=== PATIENT | female | born 2000 | race American Indian/Alaskan Native ===

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

== ENCOUNTER 2019-07-04 17:41 | Emergency (ER) | payer SELFPAY ==
--- NOTE | 2019-07-04 20:51 | Event Note ---
ED Screening Note Date of service: 07/04/19 Time: 20:47 ED Screening Note: This is a 19 y.o. F. that presents to the ER with pelvic pain, n/v x 1 week. Patient states she is 2 months . No OBGYN. LMP 04/26/2019, A0 Admits pelvic pain, N/V, and vaginal discharge. Denies urinary frequency, urgency, dysuria. This initial assessment/diagnostic orders/clinical plan/treatment(s) is/are subject to change based on patients health status, clinical progression and re- assessment by fellow clinical providers in the ED. Further treatment and workup at subsequent clinical providers discretion. Patient/guardian urged not to elope from the ED as their condition may be serious if not clinically assessed and managed. Initial orders include: Labs and OB US
--- NOTE | 2019-07-04 21:09 | Emergency Department Report ---
ED Abdominal Pain HPI - General Chief Complaint: Abdominal Pain Stated Complaint: 8 WKS /MISCARRIAGE Time Seen by Provider: 07/04/19 20:47 Source: patient Mode of arrival: Ambulatory Limitations: No Limitations - History of Present Illness Initial Comments: This is a 19-year-old female here complaining that she is 8 weeks and complaining of sharp lower abdominal pain. She says she had some discharge today. Pain is 10 out of 10 located to the lower abdomen at pelvic area. She denies any vaginal bleeding or back pain. Denies any nausea or vomiting. Denies any shortness of breath or chest pain. Denies any urinary symptoms. She says she has unprotected sex with one partner. Last menstrual period was 01/08/2019 . He said pain is crampy and on and off and she has not taken any medication for pain. She reports that her pain started 2 days ago. MD Complaint: abdominal pain Onset/Timin -: days(s) Location: suprapubic Radiation: none Migration to: no migration Severity: severe Severity scale (0 -10): 10 Quality: cramping Consistency: intermittent Improves With: nothing Worsens With: nothing Context: other (reports ) Associated Symptoms: other (vaginal discharge). denies: nausea, vomiting, diarrhea, fever, chills, constipation, dysuria, hematemesis, hematochezia, melena, hematuria, anorexia, syncope Treatments Prior to Arrival: other (none) - Related Data LMP Date: 04/26/19 LMP (females 10-50): Home Medications Medication Instructions Recorded Confirmed Last Taken levETIRAcetam [Keppra] 750 mg PO BID 04/14/14 06/23/16 06/22/16 Previous Rx's Medication Instructions Recorded Last Taken Type Ferrous Sulfate [Feosol 325 MG tab] 325 mg PO BID #60 tablet 06/23/16 Unknown Rx Ibuprofen [Motrin] 800 mg PO Q8HR PRN #30 tablet 06/23/16 Unknown Rx Vit-Fe Fumar-FA [ 1 tab PO QDAY #30 tablet 06/23/16 Unknown Rx Vitamin] oxyCODONE /ACETAMINOPHEN [Percocet 1 tab PO Q6HR PRN #30 tablet 06/23/16 Unknown Rx 5/325] Doxylamine Succinate/Vit B6 1 each PO QHS PRN #15 tablet. 07/05/19 Unknown Rx [Dicchelsea Cordon 10-10 mg Tablet] Nitrofurantoin Hunt/M-Cryst 100 mg PO Q12HR 7 Days #14 capsule 07/05/19 Unknown Rx [Macrobid CAP] Pnv,Calcium 72/Iron/Folic Acid 1 each PO QAM 30 Days #30 tablet 07/05/19 Unknown Rx [ Plus Tablet] metroNIDAZOLE [Flagyl] 500 mg PO Q12HR 7 Days #14 tab 07/05/19 Unknown Rx Allergies Allergy/AdvReac Type Severity Reaction Status Date / Time kiwi Allergy Itching Verified 04/14/14 19:58 leida flavor Allergy Itching Verified 04/14/14 19:50 ED Review of Systems ROS: Stated complaint: 8 WKS /MISCARRIAGE Other details as noted in HPI Constitutional: denies: chills, fever ENT: denies: ear pain, throat pain, congestion Respiratory: denies: cough, shortness of breath, wheezing Cardiovascular: denies: chest pain, palpitations, edema, syncope Gastrointestinal: abdominal pain. denies: nausea, vomiting, diarrhea, co nstipation, hematemesis, melena, hematochezia Genitourinary: discharge, abnormal menses. denies: urgency, dysuria, frequency, hematuria, dyspareunia Musculoskeletal: denies: back pain, joint swelling, arthralgia, myalgia Skin: denies: rash Neurological: denies: headache, numbness, paresthesias, abnormal gait, vertigo ED Past Medical Hx - Past Medical History Previous Medical History?: Yes Hx Hypertension: No Hx Congestive Heart Failure: No Hx Diabetes: No Hx Deep Vein Thrombosis: No Hx Renal Disease: No Hx Sickle Cell Disease: No Hx Headaches / Migraines: Yes Hx Seizures: Yes Hx Psychiatric Treatment: No Hx Asthma: No Hx COPD: No Hx HIV: No - Surgical History Past Surgical History?: No - Family History Family history: hypertension - Social History Smoking Status: Never Smoker Substance Use Type: None - Medications Home Medications: Home Medications Medication Instructions Recorded Confirmed Last Taken Type levETIRAcetam [Keppra] 750 mg PO BID 04/14/14 06/23/16 06/22/16 History Ferrous Sulfate [Feosol 325 MG tab] 325 mg PO BID #60 tablet 06/23/16 Unknown Rx Ibuprofen [Motrin] 800 mg PO Q8HR PRN #30 tablet 06/23/16 Unknown Rx Vit-Fe Fumar-FA [ 1 tab PO QDAY #30 tablet 06/23/16 Unknown Rx Vitamin] oxyCODONE /ACETAMINOPHEN [Percocet 1 tab PO Q6HR PRN #30 tablet 06/23/16 Unknown Rx 5/325] Doxylamine Succinate/Vit B6 1 each PO QHS PRN #15 tablet. 07/05/19 Unknown Rx [Diclegis Dr 10-10 mg Tablet] Nitrofurantoin Hunt/M-Cryst 100 mg PO Q12HR 7 Days #14 capsule 07/05/19 Unknown Rx [Macrobid CAP] Pnv,Calcium 72/Iron/Folic Acid 1 each PO QAM 30 Days #30 tablet 07/05/19 Unknown Rx [ Plus Tablet] metroNIDAZOLE [Flagyl] 500 mg PO Q12HR 7 Days #14 tab 07/05/19 Unknown Rx ED Physical Exam - General Limitations: No Limitations General appearance: alert, in no apparent distress - Head Head exam: Present: atraumatic, normocephalic - Eye Eye exam: Present: normal appearance, PERRL, EOMI Pupils: Present: normal accommodation - ENT ENT exam: Present: mucous membranes dry, TM's normal bilaterally, normal investment associate al ear exam. Absent: normal exam, normal orophraynx - Neck Neck exam: Present: normal inspection, full ROM. Absent: tenderness, lymphadenopathy - Respiratory Respiratory exam: Present: normal lung sounds bilaterally. Absent: respiratory distress, chest wall tenderness - Cardiovascular Cardiovascular Exam: Present: regular rate, normal rhythm, normal heart sounds - GI/Abdominal GI/Abdominal exam: Present: soft, tenderness (I will tenderness left lower quadrant abdomen), normal bowel sounds. Absent: distended, guarding, rebound, rigid, organomegaly, mass, bruit, pulsatile mass, hernia - External exam: Present: normal external exam. Absent: erythema, swelling, lesions, lacerations, ecchymosis, bleeding Speculum exam: Present: normal speculum exam, vaginal discharge, cervical discharge, other (noted cervical erosion minimally). Absent: erythema, vaginal bleeding, foreign body, tissue, laceration Bi-manual exam: Present: normal bi-manual exam. Absent: cervical motion tendernes, adnexal tenderness, adnexal mass - Expanded Exam Expanded Female exam: Absent: vaginal laceration, tissue present in vagina, herpetic lesions, vulvar erythema, vulvar tenderness, foreign body External exam: Present: normal Amniotic fluid: Present: none Speculum exam: Present: cervical OS closed, vaginal discharge. Absent: vaginal bleeding - Back Exam Back exam: Present: normal inspection, full ROM, other (ambulates without any difficulties). Absent: tenderness, CVA tenderness (R), CVA tenderness (L), muscle spasm, rash noted - Neurological Exam Neurological exam: Present: alert, oriented X3, normal gait - Psychiatric Psychiatric exam: Present: normal affect, normal mood - Skin Skin exam: Present: warm, dry, intact, normal color. Absent: rash ED Course Vital Signs 07/04/19 20:48 Temperature 98.7 F Pulse Rate 100 H Respiratory 18 Rate Blood Pressure 122/59 O2 Sat by Pulse 99 Oximetry - Reevaluation(s) Reevaluation #1: 07/04/19 23:30 Chief complaint abdominal pain and reported that she is 8 weeks which sharp pain. Ultrasound report shows patient at 16 weeks and 1 day with normal heart tone and all other components of ultrasound is stable. Patient blood work is stable except her urinalysis shows that she has ketones of 80 with suggest dehydration and she has a urinary tract infection with high specific gravity. Patient with bacterial vaginosis and wants to be empirically treated for gonorrhea and chlamydia. gonorrhea and chlamydia is pending and urine culture sent and pending. She will be started on 1 L of IV fluid, given Macrobid and Zithromax/office Rocephin 1 g/1 g IM distal cover her UTI and vaginal discharge with an para treatment for gonorrhea and chlamydia. She is stable and in no acute distress. Reevaluation #2: 07/05/19 00:38 PT s stable on IV fluid is still infusing. She got her medication and had no adverse reaction but she threw up IV Zithromax so she will need to get Zofran IV and then Zithromax 1 g by mouth again. She is stable and in no acute distress Reevaluation #3: 07/05/19 01:32 She discharged home in stable condition. No nausea. She is able to tolerate oral fluids. She was instructed that she has to start care ANTONIO and she voiced understanding. ED Medical Decision Making - Lab Data Result diagrams: 07/04/19 21:13 07/04/19 21:13 Lab Results 07/04/19 07/04/19 07/04/19 Range/Units 21:03 21:13 21:13 WBC 11.2 H (4.5-11.0) K/mm3 RBC 3.89 (3.65-5.03) M/mm3 Hgb 10.9 (10.1-14.3) gm/dl Hct 33.2 (30.3-42.9) % MCV 85 (79-97) fl MCH 28 (28-32) pg MCHC 33 (30-34) % RDW 13.8 (13.2-15.2) % Plt Count 293 (140-440) K/mm3 Lymph % (Auto) 21.9 (13.4-35.0) % Hunt % (Auto) 6.6 (0.0-7.3) % Eos % (Auto) 0.5 (0.0-4.3) % Baso % (Auto) 0.2 (0.0-1.8) % Lymph # 2.5 (1.2-5.4) K/mm3 Hunt # 0.7 (0.0-0.8) K/mm3 Eos # 0.1 (0.0-0.4) K/mm3 Baso # 0.0 (0.0-0.1) K/mm3 Seg Neutrophils % 70.8 H (40.0-70.0) % Seg Neutrophils # 8.0 H (1.8-7.7) K/mm3 Sodium 133 L (137-145) mmol/L Potassium 4.0 (3.6-5.0) mmol/L Chloride 101.0 (98-107) mmol/L Carbon Dioxide 20 L (22-30) mmol/L Anion Gap 16 mmol/L BUN 7 (7-17) mg/dL Creatinine 0.4 L (0.7-1.2) mg/dL Estimated GFR > 60 ml/min BUN/Creatinine Ratio 18 % Glucose 84 (65-100) mg/dL Calcium 9.5 (8.4-10.2) mg/dL Total Bilirubin < 0.20 (0.1-1.2) mg/dL AST 14 (5-40) units/L ALT 6 L (7-56) units/L Alkaline Phosphatase 57 (35-129) units/L Total Protein 7.7 (6.3-8.2) g/dL Albumin 4.1 (3.9-5) g/dL Albumin/Globulin Ratio 1.1 % HCG, Quant (0-4) mIU/mL Urine Color Yellow (Yellow) Urine Turbidity Slightly-cloudy (Clear) Urine pH 5.0 (5.0-7.0) Ur Specific [place] 1.032 H (1.003-1.030) Urine Protein 30 mg/dl (Negative) mg/dL Urine Glucose (UA) Neg (Negative) mg/dL Urine Ketones 80 (Negative) mg/dL Urine Blood Neg (Negative) Urine Nitrite Neg (Negative) Urine Bilirubin Neg (Negative) Urine Urobilinogen 2.0 (<2.0) mg/dL Ur Leukocyte Esterase Mod (Negative) Urine WBC (Auto) 15.0 H (0.0-6.0) /HPF Urine RBC (Auto) 5.0 (0.0-6.0) /HPF U Epithel Cells (Auto) 11.0 (0-13.0) /HPF Urine Bacteria (Auto) 2+ (Negative) /HPF Urine Mucus 2+ /HPF 12/14/19 Range/Units 21:13 WBC (4.5-11.0) K/mm3 RBC (3.65-5.03) M/mm3 Hgb (10.1-14.3) gm/dl Hct (30.3-42.9) % MCV (79-97) fl MCH (28-32) pg MCHC (30-34) % RDW (13.2-15.2) % Plt Count (140-440) K/mm3 Lymph % (Auto) (13.4-35.0) % Hunt % (Auto) (0.0-7.3) % Eos % (Auto) (0.0-4.3) % Baso % (Auto) (0.0-1.8) % Lymph # (1.2-5.4) K/mm3 Hunt # (0.0-0.8) K/mm3 Eos # (0.0-0.4) K/mm3 Baso # (0.0-0.1) K/mm3 Seg Neutrophils % (40.0-70.0) % Seg Neutrophils # (1.8-7.7) K/mm3 Sodium (137-145) mmol/L Potassium (3.6-5.0) mmol/L Chloride (98-107) mmol/L Carbon Dioxide (22-30) mmol/L Anion Gap mmol/L BUN (7-17) mg/dL Creatinine (0.7-1.2) mg/dL Estimated GFR ml/min BUN/Creatinine Ratio % Glucose (65-100) mg/dL Calcium (8.4-10.2) mg/dL Total Bilirubin (0.1-1.2) mg/dL AST (5-40) units/L ALT (7-56) units/L Alkaline Phosphatase (35-129) units/L Total Protein (6.3-8.2) g/dL Albumin (3.9-5) g/dL Albumin/Globulin Ratio % HCG, Quant 08412 H (0-4) mIU/mL Urine Color (Yellow) Urine Turbidity (Clear) Urine pH (5.0-7.0) Ur Specific Fillmore (1.003-1.030) Urine Protein (Negative) mg/dL Urine Glucose (UA) (Negative) mg/dL Urine Ketones (Negative) mg/dL Urine Blood (Negative) Urine Nitrite (Negative) Urine Bilirubin (Negative) Urine Urobilinogen (<2.0) mg/dL Ur Leukocyte Esterase (Negative) Urine WBC (Auto) (0.0-6.0) /HPF Urine RBC (Auto) (0.0-6.0) /HPF U Epithel Cells (Auto) (0-13.0) /HPF Urine Bacteria (Auto) (Negative) /HPF Urine Mucus /HPF Urine culture pending - Radiology Data Radiology results: report reviewed OB ultrasound dictated by radiologist and report reviewed by myself. Please see report below. Findings [facility] [address] [place] [address] Ultrasound Report Signed Patient: JENNIFER GRAY MR#: [id number] : 2000 Acct:[id number] Age/Sex: 19 / F ADM Date: 07/04/19 Loc: ED Attending Dr: Ordering Physician: MAUDE SHI Date of Service: 07/04/19 Procedure(s): US OB >= 14 weeks Fetus Accession Number(s): [id number] cc: MAUDE SHI ULTRASOUND OBSTETRIC INDICATION / CLINICAL INFORMATION: pelvic pain, 2 months . Clinical Gestational Age (GA): Uncertain TECHNIQUE: Transabdominal. COMPARISON: None available. FINDINGS: There is a single intrauterine . Biparietal Diameter = 3.3 cm = 16 weeks, 2 day(s). Head Circumference = 12.1 cm = 16 weeks, 0 day(s). Abdominal Circumference = 10.1 cm = 16 weeks, 0 day(s). Femur Length = 2.2 cm = 16 weeks, 3 day(s). Average Ultrasound Age (AUA) = 16 weeks, 1 day(s). Heart Rate: 174 beats per minute. Estimated Weight in grams (if calculated): 150 g Estimated Weight Growth Percentile (if calculated): Not calculated Position: breech. Cervix: closed. Length in cm (if measured): 3.1 cm Placenta: posterior and free of the os. Amniotic Fluid Volume: normal Amniotic Fluid Index (MILAGROS) in cm (if calculated): Not calculated. Maternal Adnexa: No significant abnormality. IMPRESSION: 1. Single, living intrauterine with estimated sonographic age of 16 weeks, 1 day(s). 2. No significant sonographic abnormality. Signer Name: Mayra Carranza MD Signed: 07/04/2019 10:21 PM Workstation Name: [id number] Transcribed By: Dictated By: Mayra Carranza MD Electronically Authenticated By: Mayra Carranza MD Signed Date/Time: 07/04/192220 DD/ 18 TD/TT: - Medical Decision Making This is a 19-year-old female here report that she is having abdominal pain and she is 8 weeks . Ultrasound report shows the patient is 16 weeks and a couple days and heart tone is normal. There are no abnormalities with her uterus, ovaries. There oriented abnormalities per ultrasound. This was di ctated by radiologist and report reviewed by myself. Patient with urinary tract infection and she complained that she had vaginal discharge. She came back positive for greater than 2o clue cells, negative trichomoniasis and negative yeast. Patient chose to be empirically treated with Zithromax and IV Rocephin for gonorrhea and chlamydia. She had wet prep done and also GC and chlamydia which was sent off. She was treated empirically for guttering chlamydia and will be started on medication for bacterial vaginosis. She will also be started on medication for urinary tract infection. I discuss with patient her laboratory results which shows ketones of 80 and she is given 1 L of normal estefania ine and able to tolerate oral liquids. She got Zofran IV in emergency room gaze she initially vomited her Zithromax and dose had to be repeated. I discussed the patient that she needs to call [employer] [facility] over the [employer] supervisor 2018 Dr. Mica Owens and schedule an appointment for visits. She voices understanding. Patient will be discharged home in stable condition. Vital signs stable she is afebrile and given prescription for Macrobid, Flagyl, Diclegis and PNV and to follow-up with [facility] in 2-3 days and she voiced understanding. I also encouraged her that she needs to increase her fluid intake to prevent dehydration, recurrent urinary tract infection and abdominal pain and she voiced understanding. She is aware for ultrasound results. - Differential Diagnosis ectopic , UTI, abdominal pain and , STD Critical care attestation.: If time is entered above; I have spent that time in minutes in the direct care of this critically ill patient, excluding procedure time. ED Disposition Clinical Impression: Bacterial vaginosis in , Urinary tract infection during intrauterine p regnancy, Dehydration during Abdominal pain during Qualifiers: Trimester: second trimester Qualified Code(s): O26.892 - Other specified related conditions, second trimester Disposition: DC-01 TO HOME OR SELFCARE Is pt being admited?: No Does the pt Need Aspirin: No Condition: Stable Instructions: Bacterial Vaginosis (ED), Dehydration (ED), Urinary Tract Infection in Women (ED), Abdominal Pain in (ED) Additional Instructions: Please schedule an appointment to see [facility] on 07/06/2019. Please see discharge instruction sheet for [employer] [facility] phone number and address. Increase her fluid intake to 2-3 L daily take include water and Gatorade. Start taking vitamin Take Macrobid for urinary tract infection and Flagyl for bacterial vaginosis Avoid Douching Condition worsens, return to the emergency room, to include vaginal bleeding and nausea or vomiting You can take Zofran as ordered for nausea or vomiting. Rest for a few days and avoid sexual activity until you completes medication for bacterial vaginosis. Please do not drink alcohol while taking medication such as antibiotic or medication for bacterial vaginosis as this can cause severe nausea and dehydration Prescriptions: Doxylamine Succinate/Vit B6 [Alber Cordon 10-10 mg Tablet] 1 each PO QHS PRN #15 tablet. PRN Reason: Nausea And Vomiting metroNIDAZOLE [Flagyl] 500 mg PO Q12HR 7 Days #14 tab Nitrofurantoin Hunt/M-Cryst [Macrobid CAP] 100 mg PO Q12HR 7 Days #14 capsule Pnv,Calcium 72/Iron/Folic Acid [ Plus Tablet] 1 each PO QAM 30 Days #30 tablet Referrals: JUHI OWENS MD [Staff Physician] - 2-3 Days Forms: STI Treatment and Prevention, Work/School Release Form(ED)
[2019-07-04 21:54] LABS: Basophils % (Auto) 0.2 % (0.0-1.8); Eosinophils # (Auto) 0.1 K/mm3 (0.0-0.4); Eosinophils % (Auto) 0.5 % (0.0-4.3); Hematocrit 33.2 % (30.3-42.9); Hemoglobin 10.9 gm/dl (10.1-14.3); Lymphocytes # (Auto) 2.5 K/mm3 (1.2-5.4); Lymphocytes % (Auto) 21.9 % (13.4-35.0); Mean Corpuscular HGB Conc 33 % (30-34); Mean Corpuscular Volume 85 fl (79-97); Monocytes # (Auto) 0.7 K/mm3 (0.0-0.8); Monocytes % (Auto) 6.6 % (0.0-7.3); Platelet Count 293 K/mm3 (140-440); Red Blood Count 3.89 M/mm3 (3.65-5.03); Red Cell Distribution Width 13.8 % (13.2-15.2)
--- NOTE | 2019-07-04 22:26 | Ultrasound Report ---
ULTRASOUND OBSTETRIC INDICATION / CLINICAL INFORMATION: pelvic pain, 2 months . Clinical Gestational Age (GA): Uncertain TECHNIQUE: Transabdominal. COMPARISON: None available. FINDINGS: There is a single intrauterine . Biparietal Diameter = 3.3 cm = 16 weeks, 2 day(s). Head Circumference = 12.1 cm = 16 weeks, 0 day(s). Abdominal Circumference = 10.1 cm = 16 weeks, 0 day(s). Femur Length = 2.2 cm = 16 weeks, 3 day(s). Average Ultrasound Age (AUA) = 16 weeks, 1 day(s). Heart Rate: 174 beats per minute. Estimated Weight in grams (if calculated): 150 g Estimated Weight Growth Percentile (if calculated): Not calculated Position: breech. Cervix: closed. Length in cm (if measured): 3.1 cm Placenta: posterior and free of the os. Amniotic Fluid Volume: normal Amniotic Fluid Index (MILAGROS) in cm (if calculated): Not calculated. Maternal Adnexa: No significant abnormality. IMPRESSION: 1. Single, living intrauterine with estimated sonographic age of 16 weeks, 1 day(s). 2. No significant sonographic abnormality. Signer Name: Mayra Carranza MD Signed: 07/04/2019 10:21 PM Workstation Name: [id number]
[2019-07-04 22:44] LABS: Alanine Aminotransferase 6 units/L (7-56); Albumin 4.1 g/dL (3.9-5); BUN/Creatinine Ratio 18; Blood Urea Nitrogen 7 mg/dL (7-17); Calcium 9.5 mg/dL (8.4-10.2); Hemolysis Index 2
[2019-07-04 23:15] LABS: Bacteria,Urine 2+ /HPF (Negative); Bilirubin,Urine NEG (Negative); Blood,Urine NEG (Negative); Color,Urine Yellow (Yellow); Mucus,Urine 2+ /HPF
[2019-07-04] MEDS ORDERED: SODIUM CHLORIDE 0.9% 1000 ML 1,000 ML IV ONE (23:21)
[2019-07-04] MEDS ORDERED: AZITHROMYCIN 250 MG TAB PO ONE (23:26)
[2019-07-04] MEDS ORDERED: LIDOCAINE-MPF (1%) 10 MG/1 ML VIAL 5 ML INFILTRATI ONE (23:27)
[2019-07-05] MEDS ORDERED: AZITHROMYCIN 250 MG TAB PO ONE (00:50)
[2019-07-05] MEDS ORDERED: SODIUM CHLORIDE 0.9% 1000 ML 1,000 ML IV ONE (00:50)
[2019-07-05] MEDS ORDERED: ONDANSETRON 4 MG/2 ML INJ IV ONE (00:50)
[2019-07-05 05:31] VITALS: BP 121/60
== END 2019-07-05 02:00 | disposition home or self-care (01) ==
LOC: ED 17:41 → EEVIPCON 17:41 → ED 07-05 02:00
DX: O23.592 Infection of other part of genital tract in pregnancy, second trimester (principal); O23.32 Infections of other parts of urinary tract in pregnancy, second trimester; O99.282 Endocrine, nutritional and metabolic diseases complicating pregnancy, second trimester; E86.0 Dehydration; Z79.899 Other long term (current) drug therapy; Z3A.16 16 weeks gestation of pregnancy
CPT/HCPCS: 36415; 76805; 80053; 81001; 84702; 85025; 87086; 87210; 87591; 96361; 96372; 96374; 99285; J0696; J7030; 96365; J2405

== ENCOUNTER 2019-10-01 17:50 | Outpatient (CLI) | payer MEDICAID ==
[2019-10-01 19:40] VITALS: BP 115/64
--- NOTE | 2019-10-01 20:23 | Ultrasound Report ---
LIMITED OBSTETRIC ULTRASOUND HISTORY: Rule out abruption. Clinical gestational age 28 weeks COMPARISON: Obstetric ultrasound 07/04/2019 TECHNIQUE: Limited OB ultrasound performed. FINDINGS: Limited obstetric ultrasound was performed of the placenta to assess for possible abruption. There is a single intrauterine gestation in cephalic position. heart rate measures 162 bpm. Amn iotic fluid index is normal, measuring 12.3 cm. The placenta is posterior in location and sonographically unremarkable. IMPRESSION 1. Single living intrauterine . 2. The placenta is sonographically unremarkable. 3. Normal amniotic fluid index. Signer Name: Yamel Carrillo MD Signed: 10/01/2019 8:19 PM Workstation Name: [id number]
[2019-10-01 21:22] LABS: Bilirubin,Urine NEG (Negative); Blood,Urine NEG (Negative); Color,Urine Straw (Yellow); Mucus,Urine FEW /HPF; Protein,Urine <15 mg/dL mg/dL (Negative); Urobilinogen,Urine < 2.0 mg/dL (<2.0)
== END 2019-10-01 23:20 | disposition home or self-care (01) ==
LOC: TRG 17:50
PROVIDERS: ATTEND Obstetrics & Gynecology
DX: O47.03 False labor before 37 completed weeks of gestation, third trimester (principal); Z3A.28 28 weeks gestation of pregnancy
CPT/HCPCS: 76815; 81001